=== PATIENT | male | born 1955 | race Caucasian/White ===

== ENCOUNTER → 2021-11-16 | Outpatient (CLI) | payer MEDICARE, OTHER ==
[2021-11-16 12:30] LABS: HEMOGLOBIN 17.2 gm/dl (14.0-17.5); RED BLOOD COUNT 5.47 M/UL (4.20-5.50); WHITE BLOOD COUNT 9.2 K/UL (4.5-11.0)
[2021-11-16 13:00] LABS: BUN/CREATININE RATIO 12 (0-10)
== END ==
LOC: CT 11:31
DX: R10.84 Generalized abdominal pain (principal); R73.03 Prediabetes; A00-B99 Certain infectious and parasitic diseases; K80.80 Other cholelithiasis without obstruction
CPT/HCPCS: 36415; 80053; 83036; 83690; 84443; 85027

== ENCOUNTER → 2021-11-28 | Outpatient (CLI) | payer MEDICARE, OTHER | LOC: MRI 13:42 | DX: K86.3 Pseudocyst of pancreas (principal) | CPT/HCPCS: 74183; A9577 ==